=== PATIENT | male | born 1995 | race Hispanic/Latino ===

== ENCOUNTER 2020-04-08 13:48 | Emergency (ER) | payer OTHER, SELFPAY ==
--- NOTE | 2020-04-08 13:51 | ED.GENADULT ---
HPI - General Adult General Chief complaint: Extremity Injury, Lower Stated complaint: Bruises on leg Time Seen by Provider: 04/08/20 13:50 Source: patient Mode of arrival: ambulatory Limitations: no limitations History of Present Illness HPI narrative: 24-year-old male patient presents to the [facility] with complaints of bruising to bilateral lower extremities. Patient states he has had this bruising there for about a week and a half but thinks that is getting worse. Patient states it is sometimes painful when he presses on it. Denies any fevers, body aches or chills. Denies any nausea, vomiting or diarrhea. Denies any muscle aches or falling. Denies any weakness to the lower extremities. Patient states that he did recently get a cat about a week ago however he noticed this bruising to the lower legs prior to getting the cat. Patient denies take anything for his symptoms. Related Data Home Medications Medication Instructions Recorded Confirmed No Home Medications 05/11/19 05/11/19 Allergies Allergy/AdvReac Type Severity Reaction Status Date / Time No Known Allergies Allergy Verified 04/08/20 14:04 Review of Systems Review of Systems: Narrative: CONSTITUTIONAL: Denies fever, chills, or sweats. EYES: Denies visual changes, redness, or discharge. ENT: Denies rhinorrhea, congestion, sore throat, or otalgia. CARDIOVASCULAR: Denies chest pain, palpitations, or edema. RESPIRATORY: Denies cough or dyspnea. GASTROINTESTINAL: Denies abdominal pain, nausea, vomiting, or diarrhea. GENITOURINARY: Denies dysuria or hematuria. SKIN: Denies rash or itching. Positive bruising to bilateral lower extremities MUSCULOSKELETAL: Denies back pain, joint pain, or myalgia. NEUROLOGIC: Denies headache, numbness, or weakness. PSYCHIATRIC: Denies anxiety or depression. 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 There is no relevant family history pertinent to the presenting complaint. Exam Narrative: Exam Narrative: GENERAL: Well-appearing, well-nourished, and in no acute distress. HEAD: Normocephalic, atraumatic. EYES: PERRLA and EOMI. ENT: Nares clear, no rhinorrhea or epistaxis. Mucous membranes moist. NECK: Supple. No lymphadenopathy CHEST: Clear to auscultation. No respiratory distress. HEART: Regular rate and rhythm. No murmur heard. Normal peripheral pulses. ABDOMEN: Soft, nontender, nondistended, normal active bowel sounds. EXTREMITIES: Normal range of motion. No edema. SKIN: Warm, dry, no obvious rash noted. Patient describing the bruising however there is no obvious bruising noted to bilateral lower extremities. There is areas of very light pink areas noted around the ankle to the right but there is no warmth present, no skin eruptions or discharge present. There is no itching. Patient has excellent range of motion to lower extremities. No weakness noted. NEURO: No focal deficits. Alert and oriented x3. Course Vital Signs Vital signs: Vital Signs Temperature 36.9 C 04/08/20 13:57 Pulse Rate 100 04/08/20 13:57 Respiratory Rate 16 04/08/20 13:57 Blood Pressure 121/78 04/08/20 13:57 Pulse Oximetry 99 04/08/20 13:57 Temperature 36.9 C 04/08/20 13:57 Pulse Rate 100 04/08/20 13:57 Respiratory Rate 16 04/08/20 13:57 Blood Pressure 121/78 04/08/20 13:57 Pulse Oximetry 99 04/08/20 13:57 Vital signs reviewed. Medical Decision Making Differential Diagnosis Differential Diagnosis: Differential diagnosis: Abscess, cellulitis, hidradenitis, laceration, puncture wound. Contact dermatitis, poison ion, poison sumac, psoriasis, eczema, allergic react
[2020-04-08 13:57] VITALS: BP 121/78; PULSE 100; RESP 16; TEMP 36.9; O2SAT 99
== END 2020-04-08 14:16 | disposition home or self-care (01) ==
PROVIDERS: Emergency Provider Nurse Practitioner Family
DX: R21 Rash and other nonspecific skin eruption (principal)
CPT/HCPCS: 99211; G0463

== ENCOUNTER 2024-02-15 15:05 | Emergency (ER) | payer SELFPAY ==
--- NOTE | ~2024-02-15 | XR_ITS ---
EXAMINATION: XR chest 2V Exam Date/Time: 02/15/2024 16:18 CDT HISTORY: cough, congestion Comparison: None. RESULT: Lines, tubes, and devices: None. Lungs and pleura: Segmental airspace disease in the left lower lobe. No pneumothorax or pleural effu yen. Cardiomediastinal silhouette: Stable. Other: No acute osseous or upper abdominal finding. IMPRESSION: Segmental left lower lobe airspace disease, concerning for pneumonia. Reviewed, dictated and finalized at location [facility].
[2024-02-15 15:09] VITALS: BP 155/86; PULSE 135; RESP 20; TEMP 38.3; O2SAT 100
--- NOTE | 2024-02-15 15:43 | ECG_ITS ---
Test Date: 2024-02-15 16:17:07 Measurements Intervals [place] Rate: 131 P: 13 ND: 147 QRS: 16 QRSD: 89 T: 14 QT: 280 QTc: 414 Interpretive Statements SINUS TACHYCARDIA BORDERLINE T WAVE ABNORMALITY- INFERIOR LEADS BASELINE ARTIFACT- I, II, III, AVR, AVL, AVF, V1 ABNORMAL ECG No previous ECG available for comparison Electronically Signed On 02-15-2024 20:26:16 CDT by Jesus Muñiz D.O.
--- NOTE | 2024-02-15 15:43 | ED.FEVER ---
HPI - Fever General Chief Complaint: Fever Stated Complaint: fever 102 for x3 days, vomiting x1 day Time Seen by Provider: 02/15/24 15:34 Source: patient Mode of arrival: ambulatory Limitations: no limitations History of Present Illness [facility] Narrative: this is a 28-year-old male who presents to the ED with chief complaint of Fevers, cough, congestion over the past several days. Reports he had fever up to 102-103F and has been taking regular ibuprofen for his symptoms. States that he missed work due to his illness and feels that he is just not getting any better. Endorses nausea, sore throat. reports posttussive emesis multiple times. States that he is really not bringing up a lot of phlegm with the cough. endorses headache as well. Denies any known sick contacts. Denies chest pain, shortness of breath, leg swelling, abdominal pain. 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 HEAD: Normocephalic, atraumatic. EYES: PERRLA and EOMI. ENT: mild posterior pharynx erythema without edema. Nares clear, no rhinorrhea or epistaxis. Mucous membranes moist. Oropharynx without tonsillar hypertrophy exudate or other lesions. NECK: Supple. No adenopathy or masses. CHEST: No respiratory distress. 99% room air. Coughs on exam HEART: Regular rate and rhythm. No murmur heard. Normal peripheral pulses. ABDOMEN: Soft, nontender, nondistended, normal active bowel sounds. MSK: Normal range of motion. No edema. SKIN: Warm, dry, no rash. NEURO: Alert and oriented x4. No focal deficits. PSYCH: Normal mood and affect. Course Vital Signs Vital signs: Vital Signs Temperature 100.9 F H 02/15/24 15:09 Pulse Rate 135 H 02/15/24 15:09 Respiratory Rate 20 02/15/24 15:09 Blood Pressure 155/86 H 02/15/24 15:09 Pulse Oximetry 100 02/15/24 15:09 Oxygen Delivery Room Air 02/15/24 15:09 Temperature 100.9 F H 02/15/24 15:09 Pulse Rate 130 H 02/15/24 16:11 Respiratory Rate 18 02/15/24 16:11 Blood Pressure 163/89 H 02/15/24 16:11 Pulse Oximetry 99 02/15/24 16:11 Oxygen Delivery Room Air 02/15/24 15:09 MDM - Fever MDM Narrative Medical decision making narrative: This is a 28-year-old male who presents to the ED for chief complaint of fevers, cough and congestion. Vitals initially show elevated heart rate of 135, fever 100.9 and elevated blood pressure. No respiratory distress and saturating well on room air. Exam remarkable for the above. EKG shows sinus tachycardia. Lab work shows mildly elevated white count of 10.1. Lactic acid is normal. CRP is elevated to 8.2. Urinalysis is negative. Viral swabs are negative. Chest x-ray does show segmental left lower lobe airspace opacity consistent with pneumonia. his presentation today is consistent with pneumonia. He was given sepsis post fluids as well as antibiotics IV. Vitals are improved. He feels ready to go home. Rx for Augmentin and doxycycline given. Pt will be discharged in stable condition. Return precautions given and supportive measures discussed. Pt is understanding and agreeable with plan for discharge and follow-up with PCP. Lab Data 02/15/24 15:59 02/15/24 15:59 Labs: Lab Results 02/15/24 02/15/24 Range/Units 15:44 15:59 WBC 10.1 H (4.5-10.0) K/mm3 RBC 5.55 (4.6-6.20) M/mm3 Hgb 16.4 (14.0-18.0) g/dL Hct 46.0 (42.0-52.0) %
[2024-02-15 16:10] VITALS: RESP 19
[2024-02-15 16:11] VITALS: BP 163/89; PULSE 130; RESP 18; O2SAT 99
[2024-02-15] MEDS: KETOROLAC 15 MG/ML VIAL (*BKC) IV PUSH (16:12)
[2024-02-15] MEDS: ACETAMINOPHEN 500 MG TABLET 1000 MG PO (16:12)
[2024-02-15 16:13] LABS: Basophils Absolute Auto 0.1 K/mm3 (0.0-0.1); Basophils Percent Auto 0.7 % (0.2-1.2); Eosinophils Percent Auto 0.2 % (0-4.4); Hemoglobin 16.4 g/dL (14.0-18.0); Immature Granulocyte Absolute 0.07 K/mm3 (0.00-0.031); Immature Granulocyte Percent A 0.7 % (0-0.5); Lymphocytes Absolute Auto 1.07 K/mm3 (0.9-3.2); Lymphocytes Percent Auto 10.6 % (18.3-44.2); Mean Corpuscular HGB Conc 35.7 g/dl (32-36); Mean Corpuscular Hemoglobin 29.5 pg (26-34); Mean Corpuscular Volume 82.9 fl (80-100); Mean Platelet Volume 8.8 fl (7.4-10.4); Monocytes Absolute Auto 0.8 K/mm3 (0.1-0.6); Monocytes Percent Auto 7.9 % (2.6-8.5); Neutrophils Absolute Auto 8.1 K/mm3 (1.3-6.7); Neutrophils Percent Auto 79.9 % (45.5-73.1); Platelet Count Result 229 k/mm3 (150-375); Red Blood Count 5.55 M/mm3 (4.6-6.20); Red Cell Distribution Width 12.7 % (11.5-14.5); White Blood Count 10.1 K/mm3 (4.5-10.0)
[2024-02-15 16:23] LABS: INR 1.1; Prothrombin Time 14.2 Seconds (11.1-14.7)
[2024-02-15 16:24] LABS: Partial Thromboplastin Time 32.1 Seconds (22.3-36.8)
[2024-02-15 16:25] LABS: Influenza A QL RT-PCR Negative (Negative); Influenza B QL RT-PCR Negative (Negative); RSV RNA, RT-PCR Negative (Negative); SARS-CoV-2 RNA PCR Negative (Negative)
[2024-02-15 16:27] LABS: Alanine Aminotransferase 30 U/L (6-50); Albumin Level 5.2 g/dL (3.5-5.1); Alkaline Phosphatase 68 U/L (38-126); Anion Gap 11 mmol/L (4-12); Aspartate Amino Transferase 30 U/L (17-59); Blood Urea Nitrogen 12 mg/dL (9-20); CRP 8.2 mg/dL (<1.0); Calcium 9.9 mg/dL (8.4-10.2); Carbon Dioxide 29 mmol/L (22-30); Chloride 96 mmol/L (98-107); Estimated CRCL calculation 102 ml/min; Estimated Glomerular Filt Rate > 60; Glucose 102 mg/dL (65-110); Potassium 3.7 mmol/L (3.4-5.0); Sodium 136 mmol/L (137-145)
[2024-02-15 17:37] LABS: Add Urine Microscopic? NO; Appearance Urine Clear (Clear); Bilirubin Urine Negative (Negative); Blood Urine Negative (Negative); Color Urine Yellow (Yellow); Glucose Urine UA Negative (Negative); Ketones Urine Negative (Negative); Leukocyte Esterase Ur Negative LEU/UL (Negative); Nitrate Urine Negative (Negative); Protein Urine Negative (Negative); Specific Grav Ur 1.005 (1.001-1.035); Urobilinogen Urine 0.2 mg/dL (<2.0); pH Urine 7.5 (5.0-9.0)
[2024-02-15 17:42] VITALS: BP 143/85; PULSE 107; RESP 19; TEMP 37.2; O2SAT 98
[2024-02-15] MEDS: AZITHROMYCIN 500 MG/NS 250 ML 500 MG/250 ML BAG 250 MG IVPB (17:44)
[2024-02-15 19:21] VITALS: BP 145/96; PULSE 103; RESP 17; O2SAT 100
== END 2024-02-15 19:25 | disposition home or self-care (01) ==
PROVIDERS: Emergency Provider Physician Assistant
DX: J18.9 Pneumonia, unspecified organism (principal); Z20.822 Contact with and (suspected) exposure to COVID-19
CPT/HCPCS: 36415; 71046; 80053; 81003; 83605; 85025; 85610; 85730; 86140; 87040; 87637; 93005; 96361; 96365; 96367; 96375; 99284; A9270; J0456; J0696; J1885; J7120